=== PATIENT | female | born 1990 | race Caucasian/White ===

== ENCOUNTER 2021-12-10 14:01 | Emergency (ER) | payer OTHER ==
[2021-12-10] MEDS ORDERED: HYDROCODONE/CHLORPHEN 5 ML/OSYR ONE (14:28)
--- NOTE | 2021-12-10 15:17 | RAD REPORT ---
EXAM DESCRIPTION: RAD - Chest Pa And Lat (2 Views) - 12/10/2021 3:09 pm CLINICAL HISTORY: Cough;Congestion Chest pain. COMPARISON: No comparisons FINDINGS: The lungs are clear. The heart is normal in size. No displaced fractures. IMPRESSION: No acute or concerning finding suspected.
[2021-12-10 15:24] LABS: SARS-COV-2 RT PCR NEGATIVE (NEGATIVE)
--- NOTE | 2021-12-10 15:33 | EDPHYS ---
Physician Documentation [facility] Name: Princess Torres Age: 31 yrs Sex: Female : 1990 Arrival Date: 12/10/2021 Time: 14:04 Bed 10 Private MD: ED Physician Errol López HPI: 12/10 15:30 This 31 yrs old Female presents to ER via Ambulatory with complaints of Cough, Ear Pain.kb 15:30 The patient or guardian reports cough. Onset: The symptoms/episode began/occurred 2 kb week(s) ago. Severity of symptoms: At their worst the symptoms were moderate, in the emergency department the symptoms are unchanged. Modifying factors: The symptoms are alleviated by nothing, the symptoms are aggravated by nothing. Associated signs and symptoms: Pertinent positives: earache, rhinorrhea. The patient has not experienced similar symptoms in the past. The patient has not recently seen a physician. Pt reports cough for 2 weeks with ear pain/fullness, rhinorrhea, and congestion. . Historical: - Allergies: 14:12 No Known Allergies; ab2 - Home Meds: 14:12 None [Active]; ab2 - PMHx: 14:12 None; ab2 - PSHx: 14:12 None; ab2 - Immunization history:: Adult Immunizations up to date. - Social history:: Smoking status: Patient reports the use of cigarette tobacco products, smokes one-half pack cigarettes per day. ROS: 15:29 Constitutional: Negative for fever, chills, and weight loss. kb 15:29 ENT: Positive for ear pain, rhinorrhea, sinus congestion, sinus pain. 15:29 Respiratory: Positive for cough, Negative for dyspnea on exertion, hemoptysis, orthopnea, pleurisy, shortness of breath, sputum production, wheezing. 15:29 All other systems are negative. Exam: 15:29 Constitutional: This is a well developed, well nourished patient who is awake, alert, kb and in no acute distress. Head/Face: Normocephalic, atraumatic. Cardiovascular: Regular rate and rhythm with a normal S1 and S2. No gallops, murmurs, or rubs. No pulse deficits. Respiratory: Respirations even and unlabored. No increased work of breathing. Talking in full sentences Skin: Warm, dry with normal turgor. Normal color. MS/ Extremity: Pulses equal, no cyanosis. Neurovascular intact. Full, normal range of motion. Neuro: Awake and alert, GCS 15, oriented to person, place, time, and situation. Moves all extremities. Normal gait. Psych: Awake, alert, with orientation to person, place and time. Behavior, mood, and affect are within normal limits. 15:29 ENT: External ear(s): are unremarkable, Ear canal(s): are normal, TM's: bulging, on the right, fluid levels, on the right, Examination of the other ear shows no obvious abnormality. Vital Signs: 14:09 BP 110 / 83; Pulse 99; Resp 19; Temp 98.1(TE); Pulse Ox 100% on R/A; Weight 56.7 kg; ab2 Height 5 ft. 5 in. (165.10 cm); Pain 0/10; 15:40 BP 121 / 77; Pulse 91; Resp 16; Pulse Ox 99% on R/A; ab2 14:09 Body Mass Index 20.80 (56.70 kg, 165.10 cm) ab2 MDM: 14:43 Patient medically screened. kb 15:28 Data reviewed: vital signs, nurses notes. Data interpreted: Pulse oximetry: on room air kb is 100 %. Interpretation: normal. Counseling: I had a detailed discussion with the patient and/or guardian regarding: the historical points, exam findings, and any diagnostic results supporting the discharge/admit diagnosis, lab results, radiology results, the need for outpatient follow up, a family practitioner, to return to the emergency department if symptoms worsen or persist or if there are any questions or concerns that arise at home. 12/10 14:14 Order name: COVID-19/FLU A+B (Document "Date of Onset" if Symptomatic); Complete Time: kb 15:28 12/10 14:14 Order name: Chest Pa And Lat (2 Views) XRAY; Complete Time: 15:22 kb Administered Medications: 14:26 Drug: Tussionex Pennkinetic ER (chlorpheniramine-hydrocodone) Suspension 5 ml Route: PO;ab2 Disposition Summary: 12/10/21 15:32 Discharge Ordered Location: Home kb Condition: Stable kb Diagnosis - Acute sinusitis, unspecified kb - Otitis media, unspecified, right ear kb Followup: kb - With: Emergency Department - When: As needed - Reason: Worsening of condition Followup: kb - With: Private Physician - When: 2 - 3 days - Reason: Recheck today's complaints, Continuance of care, Re-evaluation by your physician Discharge Instructions: - Discharge Summary Sheet kb - Otitis Media, Adult, [id number] kb - Sinusitis, Adult, [id number] kb Forms: - Medication Reconciliation Form kb - Thank You Letter kb - Antibiotic Education kb - Prescription Opioid Use kb Prescriptions: - Augmentin 875-125 mg Oral Tablet - take 1 tablet by ORAL route every 12 hours for 10 days; 20 tablet; Refills: 0, kb Product Selection Permitted - Tessalon Perles 100 mg Oral Capsule - take 1 capsule by ORAL route every 8 hours As needed; 15 capsule; Refills: 0, kb Product Selection Permitted Signatures: Dispatcher [employer] EDDora Burt, Pineda Aquino Corrections: (The following items were deleted from the chart) 14:15 14:15 COVID-19/FLU A+B+[id number] ordered. EDMS EDMS
--- NOTE | 2021-12-10 15:33 | ER ---
Nurse's Notes [facility] Name: Princess Torres Age: 31 yrs Sex: Female : 1990 Arrival Date: 12/10/2021 Time: 14:04 Bed 10 Private MD: Diagnosis: Acute sinusitis, unspecified;Otitis media, unspecified, right ear Presentation: 12/10 14:09 Chief complaint: Patient states: "I have had a cough for like 2 weeks now, I've tried ab2 OTC meds and now I feel like I cant catch my breath at all. I cant hear out of either ears and my whole head is congested. My body is starting to hurt from all the coughing." Pt denies fever, n/v/d and chest pain. Coronavirus screen: Vaccine status: Patient reports being unvaccinated. Client denies travel out of the [place] in the last 14 days. congestion, cough unrelated to allergies, difficulty breathing, muscle pain, shortness of breath, Client presents with at least one sign or symptom that may indicate coronavirus-19. Standard/surgical mask placed on the client. Provider contacted for isolation considerations. Ebola Screen: Patient negative for fever greater than or equal to 101.5 degrees Fahrenheit, and additional compatible Ebola Virus Disease symptoms Patient denies exposure to infectious person. Patient denies travel to an Ebola-affected area in the 21 days before illness onset. No symptoms or risks identified at this time. Initial Sepsis Screen: Does the patient meet any 2 criteria? No. Patient's initial sepsis screen is negative. Does the patient have a suspected source of infection? No. Patient's initial sepsis screen is negative. Risk Assessment: Do you want to hurt yourself or someone else? Patient reports no desire to harm self or others. Onset of symptoms is unknown. 14:09 Method Of Arrival: Ambulatory ab2 14:09 Acuity: LEO 4 ab2 Triage Assessment: 14:12 General: Appears in no apparent distress. uncomfortable, Behavior is calm, cooperative, ab2 appropriate for age. Pain: Complains of pain in generalized body aches. EENT: Reports nasal congestion nasal discharge. Cardiovascular: Denies chest pain. Respiratory: Reports shortness of breath cough that is Airway is patent Respiratory effort is even, unlabored, Respiratory pattern is regular, symmetrical. Historical: - Allergies: 14:12 No Known Allergies; ab2 - Home Meds: 14:12 None [Active]; ab2 - PMHx: 14:12 None; ab2 - PSHx: 14:12 None; ab2 - Immunization history:: Adult Immunizations up to date. - Social history:: Smoking status: Patient reports the use of cigarette tobacco products, smokes one-half pack cigarettes per day. Screenin:40 Abuse screen: Denies threats or abuse. Denies injuries from another. Nutritional ab2 screening: No deficits noted. Tuberculosis screening: Fall Risk None identified. Assessment: 15:39 General: Appears in no apparent distress. uncomfortable, Behavior is calm, cooperative, ab2 appropriate for age. Pain: Denies pain. Neuro: Level of Consciousness is awake, alert, obeys commands, Oriented to person, place, time, situation, Appropriate for age Roving Sizer are equal bilaterally Moves all extremities. Gait is steady, Speech is normal, Facial symmetry appears normal. Cardiovascular: No deficits noted. Denies chest pain, shortness of breath, Heart tones S1 S2 present Patient's skin is warm and dry. Respiratory: Reports cough that is Airway is patent Respiratory effort is even, unlabored, Respiratory pattern is regular, Breath sounds with wheezes bilaterally. GI: No deficits noted. No signs and/or symptoms were reported involving the gastrointestinal system. : No deficits noted. No signs and/or symptoms were reported regarding the genitourinary system. EENT: No deficits noted. No signs and/or symptoms were reported regarding the EENT system. Derm: No deficits noted. No signs and/or symptoms reported regarding the dermatologic system. Skin is intact, is healthy with good turgor, Skin is pink, warm \\T\\ dry. Vital Signs: 14:09 BP 110 / 83; Pulse 99; Resp 19; Temp 98.1(TE); Pulse Ox 100% on R/A; Weight 56.7 kg; ab2 Height 5 ft. 5 in. (165.10 cm); Pain 0/10; 15:40 BP 121 / 77; Pulse 91; Resp 16; Pulse Ox 99% on R/A; ab2 14:09 Body Mass Index 20.80 (56.70 kg, 165.10 cm) ab2 ED Course: 14:04 Patient arrived in ED. rg4 14:05 Dora Holt FNP-C is [facility]. kb 14:05 Errol López MD is Attending Physician. kb 14:12 Triage completed. ab2 14:13 Arm band placed on right wrist. ab2 14:26 COVID-19/FLU A+B (Document "Date of Onset" if Symptomatic) Sent. ab2 15:09 Chest Pa And Lat (2 Views) XRAY In Process Unspecified. EDMS 15:39 Pineda Uriostegui is Primary Nurse. ab2 15:40 No provider procedures requiring assistance completed. Patient did not have IV access ab2 during this emergency room visit. Administered Medications: 14:26 Drug: Tussionex Pennkinetic ER (chlorpheniramine-hydrocodone) Suspension 5 ml Route: PO;ab2 Outcome: 15:32 Discharge ordered by MD. kb 15:40 Discharged to home ambulatory. ab2 15:40 Condition: good 15:40 Discharge instructions given to patient, Instructed on discharge instructions, follow up and referral plans. medication usage, Demonstrated understanding of instructions, follow-up care, medications, Prescriptions given X 2. 15:40 Patient left the ED. ab2 Signatures: Dispatcher [employer] EDWV Dora Holt FNP-C SALES SUPPORT ASSOCIATE-April Suárez rg4 Pineda Uriostegui ab2
[2021-12-10 16:35] VITALS: BP 121/77; TEMP 98.1; O2SAT 99
== END 2021-12-10 15:40 | disposition home or self-care (01) ==
LOC: ER 14:01
DX: J01.90 Acute sinusitis, unspecified (principal); H66.91 Otitis media, unspecified, right ear; F17.210 Nicotine dependence, cigarettes, uncomplicated; Z20.822 Contact with and (suspected) exposure to COVID-19
CPT/HCPCS: 0240U; 71046; 99284

== ENCOUNTER 2023-03-17 07:15 | Emergency (ER) | payer OTHER ==
[2023-03-17] MEDS ORDERED: DIAZEPAM 5 MG TABLET ONE (08:04)
[2023-03-17] MEDS ORDERED: HYDROCODONE/APAP 5/325 MG TAB ONE (08:05)
[2023-03-17 08:07] LABS: Specific Gravity > 1.030 (1.005-1.030)
[2023-03-17 08:11] LABS: Specific Gravity > 1.030 (1.005-1.030); Urine Bacteria None Seen /HPF (<20); Urine Bilirubin NEGATIVE (Negative); Urine Blood Negative (Negative); Urine Clarity Clear (Clear); Urine Color Yellow (Yellow); Urine Glucose NEGATIVE (Negative); Urine Mucus 1+ /HPF (None Seen); Urine Protein TRACE (Negative); Urine RBC <5 /HPF (None Seen); Urine Urobilinogen Normal (Normal); Urine pH 5.5 (5.0-7.0)
--- NOTE | 2023-03-17 08:28 | ER ---
Nurse's Notes [facility] Name: Princess Torres Age: 32 yrs Sex: Female : 1990 Arrival Date: 03/17/2023 Time: 07:15 Bed 14 Private MD: Diagnosis: Muscle spasm;Low back pain Presentation: 03/17 07:43 Chief complaint: Patient states: patient states has lower sean pain and back tenderness db today. yesterday was mowing. Denies urinary symptoms. Coronavirus screen: Vaccine status: Patient reports receiving the 2nd dose of the covid vaccine. Client denies travel out of the [place] in the last 14 days. At this time, the client does not indicate any symptoms associated with coronavirus-19. Ebola Screen: Patient negative for fever greater than or equal to 101.5 degrees Fahrenheit, and additional compatible Ebola Virus Disease symptoms Patient denies exposure to infectious person. Patient denies travel to an Ebola-affected area in the 21 days before illness onset. No symptoms or risks identified at this time. Initial Sepsis Screen: Does the patient meet any 2 criteria? No. Patient's initial sepsis screen is negative. Does the patient have a suspected source of infection? No. Patient's initial sepsis screen is negative. Risk Assessment: Do you want to hurt yourself or someone else? Patient reports no desire to harm self or others. Onset of symptoms was March 17, 2023. 07:43 Method Of Arrival: Ambulatory db 07:43 Acuity: LEO 3 db Triage Assessment: 07:44 General: Appears uncomfortable, Behavior is anxious, restless. Pain: Complains of pain db in back. Neuro: Level of Consciousness is awake, alert, obeys commands, Oriented to person, place, time, situation. Cardiovascular: Reports None Capillary refill < 3 seconds. Respiratory: Airway is patent Respiratory effort is even, unlabored, Respiratory pattern is regular, symmetrical. Musculoskeletal: Tenderness present in back Reports pain in back. 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 - Social history:: Smoking status: Patient reports the use of cigarette tobacco products, smokes one-half pack cigarettes per day. Screenin:59 [facility] ED Fall Risk Assessment (Adult) History of falling in the last 3 months, db including since admission No falls in past 3 months (0 pts) Confusion or Disorientation No (0 pts) Intoxicated or Sedated No (0 pts) Impaired Gait No (0 pts) Mobility Assist Device Used No (0 pt) Altered Elimination Score/Fall Risk Level 0 - 2 = Low Risk Oriented to surroundings, Maintained a safe environment. Abuse screen: Denies threats or abuse. Denies injuries from another. Nutritional screening: No deficits noted. Tuberculosis screening: No symptoms or risk factors identified. Assessment: 07:42 Reassessment: patient ambulatory to restroom. General: Appears in no apparent distress. db comfortable. Pain: Complains of pain in back. Neuro: Level of Consciousness is awake, alert, obeys commands, Oriented to person, place, time, situation. 08:33 Reassessment: Patient appears in no apparent distress at this time. Patient and/or db family updated on plan of care and expected duration. Pain level reassessed. Patient is alert, oriented x 3, equal unlabored respirations, skin warm/dry/pink. Patient states feeling better. Patient states symptoms have improved. Respiratory: Airway is patent Respiratory effort is even, unlabored, Respiratory pattern is regular, symmetrical. Vital Signs: 07:43 BP 120 / 96; Pulse 87; Resp 18; Temp 98.1(O); Pulse Ox 99% on R/A; Weight 69.85 kg; db Height 5 ft. 6 in. ; 08:33 BP 99 / 71; Pulse 85; Resp 16; Pulse Ox 98% on R/A; db 07:43 Body Mass Index 24.86 (69.85 kg, 167.64 cm) db ED Course: 07:16 Patient arrived in ED. rg4 07:23 Harley Obregon DO is Attending Physician. ms3 07:42 Ramya Cagle, RN is Primary Nurse. db 07:44 Triage completed. db 07:46 Arm band placed on Patient placed in an exam room. db 08:27 Tommie López DO is Referral Physician. ms3 08:33 No provider procedures requiring assistance completed. Patient did not have IV access db during this emergency room visit. 08:37 Patient has correct armband on for positive identification. Call light in reach. Side db rails up X 1. Pulse ox on. NIBP on. Warm blanket given. Administered Medications: 07:59 Drug: HYDROcodone-acetaminophen PO 5 mg-325 mg 1 tabs Route: PO; db 08:34 Follow up: Response: No adverse reaction db 07:59 Drug: Diazepam PO 5 mg Route: PO; db 08:34 Follow up: Response: No adverse reaction db Medication: 08:37 VIS not applicable for this client. db Outcome: 08:28 Discharge ordered by . ms3 08:37 Discharged to home ambulatory, with family. db 08:37 Condition: stable 08:37 Discharge instructions given to patient. 08:39 Patient left the ED. db Signatures: April Sauer rg4 Harley Obregon DO DO ms3 Ramya Cagle, RN RN db
--- NOTE | 2023-03-17 08:29 | EDPHYS ---
Physician Documentation [facility] Name: Princess Torres Age: 32 yrs Sex: Female : 1990 Arrival Date: 03/17/2023 Time: 07:15 Bed 14 Private MD: ED Physician Harley Obregon HPI: 03/17 08:16 This 32 yrs old Female presents to ER via Ambulatory with complaints of Back Pain. ms3 08:16 32-year-old female with no past medical history presents for left lower back pain after ms3 mowing yesterday. Patient states the pain shoots into her hip. Patient denies nausea, vomiting, fevers, chills, urinary incontinence, bladder incontinence, numbness. Patient rates pain 10/10 and states the pain is shooting. Patient denies alleviating or inciting factors. Patient has taken Tylenol and applied a heating pad without relief. 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 - Social history:: Smoking status: Patient reports the use of cigarette tobacco products, smokes one-half pack cigarettes per day. ROS: 08:16 Constitutional: Negative for fever, and chills. Neck: Negative for injury, pain, and ms3 swelling, Cardiovascular: Negative for chest pain, and palpitations. Respiratory: Negative for shortness of breath, cough, wheezing, and pleuritic chest pain, Abdomen/GI: Negative for abdominal pain, nausea, vomiting, diarrhea, and constipation, Skin: Negative for injury, rash, and discoloration. 08:16 Back: Positive for pain at rest, pain with movement. 08:16 All other systems are negative. Exam: 08:16 Constitutional: This is a well developed, well nourished patient who is awake, alert, ms3 and in no acute distress. Head/Face: Normocephalic, atraumatic. Neck: Trachea midline, no cervical lymphadenopathy. Supple, full range of motion without nuchal rigidity, or vertebral point tenderness. No Meningismus. Chest/axilla: Normal chest wall appearance and motion. Nontender with no deformity. Cardiovascular: Regular rate and rhythm with a normal S1 and S2. No gallops, murmurs, or rubs. Normal PMI, no JVD. No pulse deficits. Respiratory: Lungs have equal breath sounds bilaterally, clear to auscultation and percussion. No rales, rhonchi or wheezes noted. No increased work of breathing, no retractions or nasal flaring. Abdomen/GI: Soft, non-tender, with normal bowel sounds. No distension or tympany. No guarding or rebound. No evidence of tenderness throughout. 08:16 Back: pain, that is moderate, of the left low back, ROM is normal spinal alignment noted, CVA tenderness, is noted on the left, muscle spasm, is appreciated in the left low back. Vital Signs: 07:43 BP 120 / 96; Pulse 87; Resp 18; Temp 98.1(O); Pulse Ox 99% on R/A; Weight 69.85 kg; db Height 5 ft. 6 in. ; 08:33 BP 99 / 71; Pulse 85; Resp 16; Pulse Ox 98% on R/A; db 07:43 Body Mass Index 24.86 (69.85 kg, 167.64 cm) db MDM: 07:45 Patient medically screened. ms3 08:16 Differential diagnosis: Pyelonephritis Ureterolithiasis Muscle spasm. ms3 08:29 Data reviewed: vital signs, nurses notes, lab test result(s), urinalysis, and as a ms3 result, I will discharge patient. I considered the following discharge prescriptions or medication management in the emergency department Medications were administered in the Emergency Department. See MAR. Test considered but Not performed: X-ray: . Counseling: I had a detailed discussion with the patient and/or guardian regarding: the historical points, exam findings, and any diagnostic results supporting the discharge/admit diagnosis, lab results, the need for outpatient follow up, to return to the emergency department if symptoms worsen or persist or if there are any questions or concerns that arise at home. Response to treatment: the patient's symptoms have markedly improved after treatment, and as a result, I will discharge patient. Special discussion: I discussed with the patient/guardian in detail that at this point there is no indication for admission to the hospital. It is understood, however, that if the symptoms persist or worsen the patient needs to return immediately for re-evaluation. ED course: On reevaluation patient notes marked improvement of her symptoms, patient is alert and orient x4, no apparent distress, nontoxic-appearing, ambulatory in emergency department, speaking full sentences, without bowel or bladder incontinence, without numbness or saddle anesthesia. Discussed prescription for ibuprofen and Flexeril with patient and her . Patient to follow-up with Dr. López in 2 to 3 days. Patient understands and agrees with plan. All questions were answered. Return precautions discussed include numbness, weakness, urine or bowel incontinence, worsening symptoms, or any other concerns.. 03/17 07:46 Order name: Urinalysis w/ reflexes; Complete Time: 08:15 ms3 03/17 07:46 Order name: Test, Urine; Complete Time: 08:15 ms3 Administered Medications: 07:59 Drug: HYDROcodone-acetaminophen PO 5 mg-325 mg 1 tabs Route: PO; db 08:34 Follow up: Response: No adverse reaction db 07:59 Drug: Diazepam PO 5 mg Route: PO; db 08:34 Follow up: Response: No adverse reaction db Disposition Summary: 03/17/23 08:28 Discharge Ordered Location: Home ms3 Condition: Stable ms3 Diagnosis - Muscle spasm ms3 - Low back pain ms3 Followup: ms3 - With: Tommie López DO - When: 2 - 3 days - Reason: Recheck today's complaints Discharge Instructions: - Discharge Summary Sheet ms3 - Acute Back Pain, Adult ms3 - Muscle Cramps and Spasms, Nyrd-cn-Nlic ms3 Forms: - Medication Reconciliation Form ms3 - Thank You Letter ms3 - Antibiotic Education ms3 - Prescription Opioid Use ms3 - Family Work Release db Prescriptions: - Ibuprofen 600 mg Oral Tablet - take 1 tablet by ORAL route every 6 hours As needed take with food; 30 tablet; ms3 Refills: 0, Product Selection Permitted - Cyclobenzaprine 5 mg Oral Tablet - take 1 tablet by ORAL route 3 times per day As needed; 15 tablet; Refills: 0, ms3 Product Selection Permitted Signatures: Dispatcher [employer] Harley Woods DO DO ms3 Ramya Cagle, RN RN db
[2023-03-17 08:53] VITALS: TEMP 98.1
[2023-03-17 08:55] VITALS: BP 99/71; O2SAT 98
== END 2023-03-17 08:39 | disposition home or self-care (01) ==
LOC: ER 07:15
DX: M62.830 Muscle spasm of back (principal); F17.210 Nicotine dependence, cigarettes, uncomplicated
CPT/HCPCS: 81001; 81025; 99283

== ENCOUNTER 2023-07-27 18:07 | Emergency (ER) | payer OTHER, SELFPAY ==
--- NOTE | 2023-07-27 18:43 | EDPHYS ---
Physician Documentation [facility] Name: Princess Torres Age: 33 yrs Sex: Female : 1990 Arrival Date: 07/27/2023 Time: 18:07 Bed IW3 Private MD: ED Physician Facundo Wayne HPI: 07/27 18:44 This 33 yrs old Female presents to ER via Ambulatory with complaints of Fever, Chest kb Congestion, Cough. 18:44 Patient is a 33-year-old female who presents for cough congestion, sinus pain, sinus kb congestion, headache, fever, chills for 2 weeks.. Historical: - Allergies: 18:37 No Known Allergies; ll1 - PMHx: 18:37 None; ll1 - PSHx: 18:37 None; ll1 - Immunization history:: Adult Immunizations up to date. - Social history:: Smoking status: Patient reports the use of cigarette tobacco products, smokes one-half pack cigarettes per day. ROS: 18:43 Abdomen/GI: Negative for abdominal pain, nausea, vomiting, diarrhea, and constipation, kb 18:43 Constitutional: Positive for body aches, chills, fatigue, fever, malaise, 18:43 ENT: Positive for ear pain, sinus congestion, sinus pain, sore throat, 18:43 Respiratory: Positive for cough, 18:43 Neuro: Positive for headache, 18:43 All other systems are negative, Exam: 18:43 Constitutional: This is a well developed, well nourished patient who is awake, alert, kb and in no acute distress. Head/Face: Normocephalic, atraumatic. Cardiovascular: Regular rate Respiratory: Respirations even and unlabored. No increased work of breathing. Talking in full sentences Skin: Warm, dry with normal turgor. Normal color. MS/ Extremity: Pulses equal, no cyanosis. Neurovascular intact. Full, normal range of motion. Neuro: Awake and alert, GCS 15, oriented to person, place, time, and situation. Moves all extremities. Normal gait. 18:43 ENT: External ear(s): are unremarkable, Ear canal(s): are normal, TM's: fluid levels, bilaterally, Posterior pharynx: erythema, that is moderate, Vital Signs: 18:37 BP 124 / 84; Pulse 97; Resp 18; Temp 97.5; Pulse Ox 100% ; Weight 68.04 kg; Height 5 ll1 ft. 4 in. ; Pain 9/10; 18:37 Body Mass Index 25.75 (68.04 kg, 162.56 cm) ll1 18:37 Pain Scale: Adult ll1 MDM: 18:27 Patient medically screened. kb 18:43 Differential diagnosis: URI, flu, COVID, strep, pharyngitis, sinusitis, pneumonia. Data kb reviewed: vital signs, nurses notes. Test considered but Not performed: Labs: Flu, COVID, strep test considered but results would not change course of treatment. X-ray: Chest x-ray considered but lungs clear bilaterally oxygen 100% on room air and respirations even and unlabored. Counseling: I had a detailed discussion with the patient and/or guardian regarding the historical points, exam findings, and any diagnostic results supporting the discharge/admit diagnosis, the need for outpatient follow up, a family practitioner, to return to the emergency department if symptoms worsen or persist or if there are any questions or concerns that arise at home. Administered Medications: No medications were administered Disposition: 07/28 10:03 Co-signature as Attending Physician, Facundo Wayne MD I reviewed the patient's care rn provided by the Advanced Practice Provider and agree with the diagnosis and treatment plan. Disposition Summary: 07/27/23 18:42 Discharge Ordered Notes: Location: Home kb Condition: Stable kb Diagnosis - Acute sinusitis, unspecified kb Followup: kb - With: Emergency Department - When: As needed - Reason: Worsening of condition Followup: kb - With: Private Physician - When: 2 - 3 days - Reason: Recheck today's complaints, Continuance of care, Re-evaluation by your physician Discharge Instructions: - Discharge Summary Sheet kb - Sinusitis, Adult, [id number] kb Forms: - Medication Reconciliation Form kb - Thank You Letter kb - Antibiotic Education kb - Prescription Opioid Use kb - Patient Portal Instructions kb - Leadership Thank You Letter kb - Work release form ll1 Prescriptions: - Augmentin 875-125 mg Oral Tablet - take 1 tablet ORAL route every 12 hours for 10 days; 20 tablet; Refills: 0, kb Product Selection Permitted Signatures: Dora Holt, AMAN HEADLEY-Ckb Wayne, Facundo, MD MD rn Shady, Lynsay, RN RN ll1
--- NOTE | 2023-07-27 18:43 | ER ---
Nurse's Notes [facility] Name: Princess Torres Age: 33 yrs Sex: Female : 1990 Arrival Date: 07/27/2023 Time: 18:07 Bed IW3 Private MD: Diagnosis: Acute sinusitis, unspecified Presentation: 07/27 18:37 Chief complaint: Patient states: Fever, cough, R ear pain, sore throat, SOB, ORDOÑEZ for 2 ll1 weeks. Coronavirus screen: Vaccine status: Patient reports being unvaccinated. Client denies travel out of the [place] in the last 14 days. congestion, cough unrelated to allergies, fatigue. Ebola Screen: Patient denies travel to an Ebola-affected area in the 21 days before illness onset. Initial Sepsis Screen: Does the patient meet any 2 criteria? No. Patient's initial sepsis screen is negative. Does the patient have a suspected source of infection? Yes: Productive cough/pneumonia. Risk Assessment: Do you want to hurt yourself or someone else? Patient reports no desire to harm self or others. Onset of symptoms was July 13, 2023. 18:37 Method Of Arrival: Ambulatory ll1 18:37 Acuity: LEO 3 ll1 Triage Assessment: 18:37 General: Appears uncomfortable, Behavior is calm, cooperative, appropriate for age. ll1 General: Reports fever for feeling ill for fatigue for. Pain: Complains of pain in head Quality of pain is described as aching. EENT: Reports nasal congestion pain when swallowing. Respiratory: Reports cough that is. Historical: - Allergies: 18:37 No Known Allergies; ll1 - PMHx: 18:37 None; ll1 - PSHx: 18:37 None; ll1 - Immunization history:: Adult Immunizations up to date. - Social history:: Smoking status: Patient reports the use of cigarette tobacco products, smokes one-half pack cigarettes per day. Screenin:47 [facility] ED Fall Risk Assessment (Adult) Score/Fall Risk Level 0 - 2 = Low Risk ll1 Oriented to surroundings, Maintained a safe environment, Educated pt \T\ family on fall prevention, incl call for assistance when getting out of bed, Hourly rounding (assess needs \T\ fall precautionary measures) done. Abuse screen: Denies threats or abuse. Nutritional screening: No deficits noted. Tuberculosis screening: No symptoms or risk factors identified. Assessment: 18:47 Reassessment: No changes from previously documented assessment. Patient and/or family ll1 updated on plan of care and expected duration. Pain level reassessed. Patient is alert, oriented x 3, equal unlabored respirations, skin warm/dry/pink. Vital Signs: 18:37 BP 124 / 84; Pulse 97; Resp 18; Temp 97.5; Pulse Ox 100% ; Weight 68.04 kg; Height 5 ll1 ft. 4 in. ; Pain 9/10; 18:37 Body Mass Index 25.75 (68.04 kg, 162.56 cm) 1 18:37 Pain Scale: Adult [facility] ED Course: 18:11 Patient arrived in ED. ts1 18:27 Dora Holt F[facility]-C [facility]. kb 18:27 Facundo Wayne MD is Attending Physician. kb 18:37 Arm band placed on. ll1 18:39 Triage completed. 1 18:47 Patient has correct armband on for positive identification. Bed in low position. 1 Provided Education on: n/a. Administered Medications: No medications were administered Outcome: 18:42 Discharge ordered by . kb 18:47 Patient left the ED. ll1 18:47 Discharged to home ambulatory, ll1 18:47 Condition: stable 18:47 Discharge instructions given to patient, Instructed on discharge instructions, follow up and referral plans. medication usage, Demonstrated understanding of instructions, follow-up care, medications, Prescriptions given X 1, Signatures: Dora Holt FNP-C FNP-Ckb Lewis, Lynsay, RN RN ll1 Dara Savage PAS [facility] ts1
== END 2023-07-27 18:47 | disposition home or self-care (01) ==
LOC: ER 18:07
DX: J01.90 Acute sinusitis, unspecified (principal); F17.210 Nicotine dependence, cigarettes, uncomplicated
CPT/HCPCS: 99283